=== PATIENT | female | born 1960 | race Two or more races ===

== ENCOUNTER → 2016-09-13 | Outpatient (CLI) | payer OTHER ==
--- NOTE | 2016-09-14 09:42 | KCIC ---
MR of the right hip Indication: Patient fell 4 years ago. Right hip pain for 3 months. Technique: Standard multiplanar sequences are obtained. Findings: Bones: No bone lesion, acute fracture or acute bone marrow edema. No femoral head osteonecrosis. Effusion: Small joint effusion. Cartilage: Severe primary osteoarthritis with cartilage loss and subchondral cysts. Labrum: Degenerative signal within the labrum without clear-cut attachment. Gluteus minimus and medius tendon: Intact Hamstring tendon: High-grade partial tear at the footplate attachment. This may be degenerative, as there is no adjacent fluid or hemorrhage to suggest an acute tear. Iliopsoas tendon: Intact Soft tissue:No significant acute findings. Diagnostically limited coronal inversion recovery survey sequence obtained with a large [id number] demonstrates osteoarthritis at the contralateral hip and milder tearing at the left hamstring tendon attachment.. Impression: 1. Severe primary osteoarthritis. 2. Small right hip joint effusion. 3. High-grade tear at the right hamstring tendon origin, likely chronic. Electronically signed by: Esdras Luna MD (09/14/2016 9:39 AM) [facility]
== END | disposition home or self-care (01) ==
LOC: KCIC MRI 16:08
PROVIDERS: ATTEND Family Medicine
DX: M16.11 Unilateral primary osteoarthritis, right hip (principal)
CPT/HCPCS: 73721

== ENCOUNTER 2021-01-17 18:52 | Inpatient (IN) | payer SELFPAY ==
[~2021-01-17] VITALS: Ht 152.4 cm; Wt 68.6 kg
[2021-01-17] MEDS ORDERED: KETOROLAC 15 MG/ML VIAL. IM ONE (21:00)
[2021-01-17 21:09] LABS: BASO # 0.1 x10^3/uL (0.0-0.2); BASO % 1 % (0-3); EOS % 0 % (0-3); HEMATOCRIT 36.7 % (36.0-47.0); HEMOGLOBIN 12.6 g/dL (12.0-15.5); LYMPH # 2.7 x10^3/uL (1.0-4.8); LYMPH % 35 % (24-48); MEAN CORPUSCULAR HEMOGLOBIN 31 pg (25-35); MEAN CORPUSCULAR HGB CONC 34 g/dL (31-37); MEAN CORPUSCULAR VOLUME 89 fL (79-100); MONO # 0.4 x10^3/uL (0.0-1.1); MONO % 6 % (0-9); NEUT # 4.7 x10^3/uL (1.8-7.7); NEUT % 59 % (31-73); PLATELET COUNT 232 x10^3/uL (140-400); RED BLOOD COUNT 4.11 x10^6/uL (3.50-5.40); RED CELL DISTRIBUTION WIDTH 17.1 % (11.5-14.5); WHITE BLOOD COUNT 7.9 x10^3/uL (4.0-11.0)
[2021-01-17 21:26] LABS: CALCIUM 8.6 mg/dL (8.5-10.1); CREATININE 2.2 mg/dL (0.6-1.0); GFR 22.8; POTASSIUM 3.3 mmol/L (3.5-5.1)
[2021-01-17 21:31] LABS: ALBUMIN 3.8 g/dL (3.4-5.0); TOTAL BILIRUBIN 0.4 mg/dL (0.2-1.0); TOTAL PROTEIN 7.6 g/dL (6.4-8.2)
[2021-01-17 21:45] LABS: BILIRUBIN,URINE NEGATIVE (NEG); CLARITY,URINE CLOUDY; COLOR,URINE YELLOW; NITRITE,URINE NEGATIVE (NEG); PROTEIN,URINE NEGATIVE (NEG-TRACE)
[2021-01-17 21:55] LABS: AMORPHOUS SEDIMENT,UR PRESENT /HPF; BACTERIA,URINE 0 /HPF (0-FEW); RBC,URINE 0 /HPF (0-2); WBC,URINE 0 /HPF (0-4)
[2021-01-17] MEDS ORDERED: IV NORMAL SALINE 1000ML BAG 1,000 ML IV ONE (22:00)
--- NOTE | 2021-01-17 22:17 | RAD ---
CT scan abdomen and pelvis without contrast 01/17/2021 CLINICAL HISTORY: Abdominal pain. TECHNIQUE: Unenhanced, contiguous, 5 mm axial sections were obtained through the abdomen and pelvis. One or more of the following individualized dose reduction techniques were utilized for this study: 1. Automated exposure control. 2. Adjustment of the mA and/or kV according to patient size. 3. Use of iterative reconstruction technique. FINDINGS: Images through the lung bases demonstrate minimal dependent subsegmental atelectasis bilate rally. The liver, spleen, pancreas, adrenal glands and kidneys are within normal limits. Atherosclerotic calcification of the abdominal aorta is seen. The abdominal aorta tapers normally. Serrano rgical changes are seen consistent with a gastric bypass type procedure. The gallbladder is distended . No free fluid or free air is seen within the abdomen. There is no evidence of bowel obstruction. Th e appendix is well-visualized and is within normal limits. Images through the pelvis demonstrate the urinary bladder to be contracted. No adnexal mass is seen. No free fluid is noted. The patient is post right KEANU. A fat-containing ventral hernia is seen projec ting to the left of midline within the lower anterior abdominal wall. This measures 7 cm transverse d iameter. Very mild S-shaped curvature of the thoracolumbar spine is seen. Degenerative changes are se en involving the lower thoracic and throughout the lumbar spine along with the left hip. The patient is post right KEANU. IMPRESSION: No acute abnormality is seen. Electronically signed by: Tony Chaudhry MD (01/17/2021 10:15 PM) [id number]
--- NOTE | 2021-01-17 22:32 | RAD ---
Exam: Chest one view INDICATION: Epigastric pain TECHNIQUE: Frontal view of the chest Comparisons: None FINDINGS: The cardiomediastinal silhouette and pulmonary vessels are within normal limits. The lung and pleural spaces are clear. IMPRESSION: No acute cardiopulmonary process. Electronically signed by: Tenisha Lama MD (01/17/2021 10:29 PM) JEANE
--- NOTE | 2021-01-17 23:32 | EKG ---
[facility] [address] [place] [address] Test Date: 2021-01-17 Test Time: 20:37:05 Pat Name: MANNY CAMPBELL Department: Room: Gender: F [employer] Instructor: : 1960 Requested By: ALEE GOODEN Order Number: [id number] Reading MD: Pieter Day MD Measurements Intervals [place] Rate: 87 P: 26 NE: 126 QRS: -23 QRSD: 78 T: -7 QT: 436 QTc: 525 Interpretive Statements SINUS RHYTHM BASELINE ARTIFACT NON-SPECIFIC ST/T CHANGES Electronically Signed On 01-22-2021 14:09:04 GRAPHIC DESIGN PROFESSOR by Pieter Day MD
[2021-01-17] MEDS ORDERED: FAMOTIDINE 20 MG/2 ML VIAL IVP ONE (23:45)
[2021-01-17] MEDS ORDERED: METOCLOPRAMIDE HCL 10 MG/2 ML VIAL. IVP ONE (23:45)
--- NOTE | 2021-01-18 01:16 | PHYS DOC ---
Past Medical History Additional Past Medical Histor: STOMACH CANCER, NEUROPATHY Past Surgical History: Hip Replacement, Other Additional Past Surgical Histo: HERNIA, CARPAL TUNNEL Smoking Status: Former Smoker Alcohol Use: None General Adult EDM: Chief Complaint: ABDOMINAL PAIN HPI: HPI: 60 yo F presents to the ED with her sister, (patient consents to his/her/their knowledge and involvement in pts' medical care), with complaints of upper abdominal pain, nausea, vomiting and diarrhea. Reports there has been some bloody emesis. Sister reports pt has been drinking daily for the past week. Review of Systems: Review of Systems: Constitutional: Denies fever or chills. [] Eyes: Denies change in visual acuity. [] HENT: Denies nasal congestion or sore throat. [] Respiratory: Denies cough or shortness of breath. [] Cardiovascular: Denies chest pain or edema. [] GI: Denies melena or hematochezia : Denies dysuria or hematuria Musculoskeletal: Denies back pain or joint pain. [] Integument: Denies rash or diaphoresis Neurologic: Denies headache, focal weakness or sensory changes. [] Endocrine: Denies polyuria or polydipsia. [] Lymphatic: Denies swollen glands. [] Psychiatric: Denies depression or anxiety. [] Heart Score: C/O Chest Pain: No Risk Factors: Risk Factors: DM, Current or recent (<one month) smoker, HTN, HLP, family history of CAD, obesity. Risk Scores: Score 0 - 3: 2.5% MACE over next 6 weeks - Discharge Home Score 4 - 6: 20.3% MACE over next 6 weeks - Admit for Clinical Observation Score 7 - 10: 72.7% MACE over next 6 weeks - Early Invasive Strategies Current Medications: Current Medications Medications (Trade) Dose Ordered Sig/Markus Start Time Stop Time Status Last Admin Dose Admin Famotidine (Pepcid Vial) 20 mg 1X ONCE 01/17/21 23:45 01/17/21 23:46 DC 01/17/21 23:41 20 MG Ketorolac Tromethamine (Toradol 15mg Vial) 15 mg 1X ONCE 01/17/21 21:00 01/17/21 21:01 Cancel Metoclopramide HCl (Reglan Vial) 10 mg 1X ONCE 01/17/21 23:45 01/17/21 23:46 DC 01/17/21 23:41 10 MG Sodium Chloride 1,000 ml @ 1,000 mls/hr 1X ONCE 01/17/21 22:00 01/17/21 22:59 DC 01/17/21 21:37 1,000 MLS/HR Allergies: Allergies: Allergies Coded Allergies Type Severity Reaction Last Updated Verified morphine Allergy Intermediate 01/17/21 Yes Physical Exam: PE: Constitutional: no acute distress, non-toxic appearance, is sleeping while placing an IV, on re-eval is ambulatory but grimacing in pain, cannot appreciate alcohol breath HENT: Normocephalic, atraumatic, Eyes: EOMI, conjunctiva normal, no discharge. Neck: Normal range of motion, supple, Cardiovascular: S1/2 present, regular rhythm Lungs & Thorax: Speaking in full sentences, bilateral equal chest rise, no tachypnea or increased work of breathing Abdomen: soft, epigastric tenderness, Sainz sign present Skin: Warm, dry, no erythema, no rash. [] Back: No tenderness, no CVA tenderness. [] Extremities: No tenderness, no cyanosis, no lower extremity edema Neurologic: Alert and oriented X 3, normal motor function, normal sensory function, no focal deficits noted. [] Psychologic: Affect normal, judgement normal, mood normal. [] Current Patient Data: Labs: Laboratory Tests Test 01/17/21 21:00 01/17/21 21:39 White Blood Count 7.9 x10^3/uL (4.0-11.0) Red Blood Count 4.11 x10^6/uL (3.50-5.40) Hemoglobin 12.6 g/dL (12.0-15.5) Hematocrit 36.7 % (36.0-47.0) Mean Corpuscular Volume 89 fL (79-100) Mean Corpuscular Hemoglobin 31 pg (25-35) Mean Corpuscular Hemoglobin Concent 34 g/dL (31-37) Red Cell Distribution Width 17.1 % (11.5-14.5) H Platelet Count 232 x10^3/uL (140-400) Neutrophils (%) (Auto) 59 % (31-73) Lymphocytes (%) (Auto) 35 % (24-48) Monocytes (%) (Auto) 6 % (0-9) Eosinophils (%) (Auto) 0 % (0-3) Basophils (%) (Auto) 1 % (0-3) Neutrophils # (Auto) 4.7 x10^3/uL (1.8-7.7) Lymphocytes # (Auto) 2.7 x10^3/uL (1.0-4.8) Monocytes # (Auto) 0.4 x10^3/uL (0.0-1.1) Eosinophils # (Auto) 0.0 x10^3/uL (0.0-0.7) Basophils # (Auto) 0.1 x10^3/uL (0.0-0.2) Sodium Level 140 mmol/L (136-145) Potassium Level 3.3 mmol/L (3.5-5.1) L Chloride Level 104 mmol/L (98-107) Carbon Dioxide Level 25 mmol/L (21-32) Anion Gap 11 (6-14) Blood Urea Nitrogen 6 mg/dL (7-20) L Creatinine 2.2 mg/dL (0.6-1.0) H Estimated GFR (Cockcroft-Gault) 22.8 BUN/Creatinine Ratio 3 (6-20) L Glucose Level 116 mg/dL (70-99) H Calcium Level 8.6 mg/dL (8.5-10.1) Magnesium Level 2.3 mg/dL (1.8-2.4) Total Bilirubin 0.4 mg/dL (0.2-1.0) Aspartate Amino Transferase (AST) 32 U/L (15-37) Alanine Aminotransferase (ALT) 26 U/L (14-59) Alkaline Phosphatase 58 U/L (46-116) Troponin I High Sensitivity 10 ng/L (4-50) Total Protein 7.6 g/dL (6.4-8.2) Albumin 3.8 g/dL (3.4-5.0) Albumin/Globulin Ratio 1.0 (1.0-1.7) Lipase 109 U/L (73-393) Ethyl Alcohol Level < 10 mg/dL (0-10) Urine Collection Type Void Urine Color Yellow Urine Clarity Cloudy Urine pH 7.0 (<5.0-8.0) Urine Specific [place] 1.015 (1.000-1.030) Urine Protein Negative mg/dL (NEG-TRACE) Urine Glucose (UA) Negative mg/dL (NEG) Urine Ketones (Stick) >=80 mg/dL (NEG) Urine Blood Negative (NEG) Urine Nitrite Negative (NEG) Urine Bilirubin Negative (NEG) Urine Urobilinogen Dipstick 1.0 mg/dL (0.2 mg/dL) Urine Leukocyte Esterase Negative (NEG) Urine RBC 0 /HPF (0-2) Urine WBC 0 /HPF (0-4) Urine Squamous Epithelial Cells Mod /LPF Urine Amorphous Sediment Present /HPF Urine Bacteria 0 /HPF (0-FEW) Urine Mucus Slight /LPF Laboratory Tests 01/17/21 21:00 Laboratory Tests 01/17/21 21:00 Vital Signs: Vital Signs Date Time Temp Pulse Resp B/P (MAP) Pulse Ox O2 Delivery O2 Flow Rate FiO2 01/17/21 19:30 97.4 100 24 142/73 (96) 99 Room Air 97.4 EKG: EKG: sinus rhythm 87 bpm, LAD, QTC 525, no T wave inversions, no ST elevation or ST depression Radiology/Procedures: Radiology/Procedures: IMAGING REPORT Signed PATIENT: MANNY CAMPBELLACCOUNT: [id number] : 1960 LOCATION: ER AGE: 60 SEX: F EXAM STATUS: REG ER ORD. PHYSICIAN: ALEE GOODEN DO REASON: abd pain PROCEDURE: CT ABDOMEN PELVIS WO CONTRAST CT scan abdomen and pelvis without contrast 01/17/2021 CLINICAL HISTORY: Abdominal pain. TECHNIQUE: Unenhanced, contiguous, 5 mm axial sections were obtained through the abdomen and pelvis. One or more of the following individualized dose reduction techniques were utilized for this study: 1. Automated exposure control. 2. Adjustment of the mA and/or kV according to patient size. 3. Use of iterative reconstruction technique. FINDINGS: Images through the lung bases demonstrate minimal dependent subsegmental atelectasis bilaterally. The liver, spleen, pancreas, adrenal glands and kidneys are within normal limits. Atherosclerotic calcification of the abdominal aorta is seen. The abdominal aorta tapers normally. Surgical changes are seen consistent with a gastric bypass type procedure. The gallbladder is distended. No free fluid or free air is seen within the abdomen. There is no evidence of bowel obstruction. The appendix is well-visualized and is within normal limits. Images through the pelvis demonstrate the urinary bladder to be contracted. No adnexal mass is seen. No free fluid is noted. The patient is post right KEANU. A fat-containing ventral hernia is seen projecting to the left of midline within the lower anterior abdominal wall. This measures 7 cm transverse diameter. Very mild S-shaped curvature of the thoracolumbar spine is seen. Degenerative changes are seen involving the lower thoracic and throughout the lumbar spine along with the left hip. The patient is post right KEANU. IMPRESSION: No acute abnormality is seen. Electronically signed by: Tony Chaudhry MD (01/17/2021 10:15 PM) [id number] DICTATED and SIGNED BY: TONY CHAUDHRY MD DATE: 01/17/[id number] 0 IMAGING REPORT Signed PATIENT: MANNY CAMPBELLACCOUNT: [id number] : 1960 LOCATION: ER AGE: 60 SEX: F EXAM STATUS: REG ER ORD. PHYSICIAN: ALEE GOODEN DO REASON: epigastric pain PROCEDURE: CHEST AP ONLY Exam: Chest one view INDICATION: Epigastric pain TECHNIQUE: Frontal view of the chest Comparisons: None FINDINGS: The cardiomediastinal silhouette and pulmonary vessels are within normal limits. The lung and pleural spaces are clear. IMPRESSION: No acute cardiopulmonary process. Electronically signed by: Tenisha Mack MD (01/17/2021 10:29 PM) [facility] DICTATED and SIGNED BY: TENISHA MACK MD DATE: 01/17/[id number] 0 IMAGING REPORT Signed PATIENT: MANNY CAMPBELLACCOUNT: [id number] : 1960 LOCATION: [address] [place] [address] AGE: 60 SEX: F EXAM STATUS: ADM IN ORD. PHYSICIAN: ALEE GOODEN DO REASON: ruq pain PROCEDURE: ABDOMEN LTD Right upper quadrant abdominal ultrasound History: Reason: ruq pain Comparison: CT abdomen and pelvis without contrast, prior day. Technique: Transabdominal ultrasound images are obtained. Findings: The liver is normal in echotexture. The liver measures 12.1 cm. Ultrasound is not sensitive for detecting solid liver lesions. Portal flow is hepatopetal. The common bile duct diameter measures 3 mm. The gallbladder wall is normal. The gallbladder is distended. Per report, sonographic Sainz sign is negative. There is no cholelithiasis or pericholecystic fluid. The pancreas and IVC are mostly obscured due to overlying bowel gas. The right kidney is normal in echotexture and measures 10.2 cm. Corticomedullary differentiation is preserved. There is no hydronephrosis. IMPRESSION: The gallbladder is distended but otherwise normal. Electronically signed by: Gopi Mccain MD (01/18/2021 2:10 AM) [facility] DICTATED and SIGNED BY: GOPI MCCAIN MD DATE: 01/18/21 [id number] 0 Course & Med Decision Making: Course & Med Decision Making Pertinent Labs and Imaging studies reviewed. (See chart for details) Concern for abdominal pain with no witnessed vomiting or diarrhea in the emergen cy department. Labs concerning for renal insufficiency, no prior for comparison. On reevaluation patient with persistent pain. Gallbladder is dilated but no evidence of cholecystectomy. Patient does have a positive Sainz sign. Will admit for further medical management. Patient stable at time of admission agrees with this plan. I have spoken with the patient and/or caregivers. I have explained the patient's condition, diagnosis and treatment plan based on the information available to me at this time. I have answered the patient's and/or caregivers questions and answered any concerns. The patient and/or caregivers have as good an understanding of the patient's diagnosis, condition and treatment plan as can be expected at this point. The patient has been stabilized within the capability of the emergency department. The patient will be transported for further care and management or will be moved to an observation or inpatient service. I have communicated with the staff or medical practitioner taking over this patient's care. Dragon Disclaimer: Dragfabrice Disclaimer: This electronic medical record was generated, in whole or in part, using a voice recognition dictation system. Departure Departure Impression: Primary Impression: Abdominal pain Additional Impression: Renal insufficiency Disposition: ADMITTED INPATIENT Admitting Physician: JOSHUA (Dr. Minaya) Condition: STABLE Referrals: NO PCP (PCP) ALEE GOODEN DO Jan 18, 2021 01:15
--- NOTE | 2021-01-18 02:13 | RAD ---
Right upper quadrant abdominal ultrasound History: Reason: ruq pain Comparison: CT abdomen and pelvis without contrast, prior day. Technique: Transabdominal ultrasound images are obtained. Findings: The liver is normal in echotexture. The liver measures 12.1 cm. Ultrasound is not sensitive for detec ting solid liver lesions. Portal flow is hepatopetal. The common bile duct diameter measures 3 mm. The gallbladder wall is normal. The gallbladder is distended. Per report, sonographic Sainz sign is negative. There is no cholelithiasis or pericholecystic fluid. The pancreas and IVC are mostly obscured due to overlying bowel gas. The right kidney is normal in echotexture and measures 10.2 cm. Corticomedullary differentiation is preserved. There is no hydronephrosis. IMPRESSION: The gallbladder is distended but otherwise normal. Electronically signed by: Gopi Mccain MD (01/18/2021 2:10 AM) [facility]
[2021-01-18 02:31] VITALS: BP 141/66
--- NOTE | 2021-01-18 03:35 | NUR ---
Patient arrived to floor 0215, this nurse sitting with 1:1 patient in another room and informed of arrival. Patient asleep, could be aroused to name. Unable to answer questions as she is [place] speaking only. This nurse asked charge nurse for labor conciliator phone, told where to find phone if available. Charge nurse informed this nurse that no phone was in drawer, charge nurse said to use my own personal cell phone to translate. This nurses' phone unable to download application for translating. Again tried to talk to patient who nodded head to a few questions. Admission paperwork done with information available on chart. Head to toe assessment completed without conversation.
[2021-01-18] MEDS ORDERED: ONDANSETRON ODT 4 MG TAB.RAPDIS. PO PRN (06:00)
[2021-01-18] MEDS ORDERED: cloNIDine HCL 0.1 MG TABLET PO PRN (06:00)
[2021-01-18 07:00] VITALS: BP 127/81
[2021-01-18] MEDS: IV NORMAL SALINE 1000ML BAG 1,000 ML IV SCH ×2 (07:00→14:00)
--- NOTE | 2021-01-18 07:20 | PDOC1 ---
History and Physical Date of Admission Date of Admission DATE: 01/18/21 TIME: 07:20 Identification/Chief Complaint Chief Complaint Vomiting, abdominal pain Source Source: Caregiver, Chart review, Patient History of Present Illness History of Present Illness Ms Tan is a 60 yo F presents to the ED with her sister c/o epigastric abdominal pain, nausea, vomiting and diarrhea. Reports there has been some bloody emesis. Sister reports pt has been drinking daily for the past week. Her sister notes multiple episodes of vomiting more than 10 times with a few episodes of some blood. Patient notes pain is sharp and 10 at worst worsened with alcohol and food does not radiate. Associated above nausea and vomiting. Per ED notes sister and noted patient has been drinking heavily for a week Smirnoff wine coolers and beers multiple per day and her sister notes she will drink incident either if there is none alcohol available No recent travel or sick contacts COVID 19 vaccinations completed june 2020. Has primary care through the [facility] Labs with WBC 7.9, Hb 12.6, platelets 232, NA 140, K3.3, BUN 6, CR 2.2, glucose 116, LFTs within normal limits, high-sensitivity troponin X, urinalysis positive ketones negative leuk esterase negative nitrites, ethanol level undetectable Chest radiograph CT abdomen pelvis with no acute abnormalities, right upper quadrant ultrasound with gallbladder no signs of cholecystitis. EKG sinus rhythm rate 87 bpm leftward axis otherwise normal intervals, QTC prolonged at [address] segment elevations no T WI. No previous EKG for comparison Admitted for further care Past Surgical History Past Surgical History: Hernia Repair, Total hip replacement Family History Family History: Diabetes, High Cholestrol, Hypertension Social History Smoke: Quit ALCOHOL: social Drugs: None Current Problem List Problem List Problems Medical Problems: (1) Abdominal pain Status: Acute (2) Renal insufficiency Status: Acute Current Medications Current Medications Current Medications Ketorolac Tromethamine (Toradol 15mg Vial) 15 mg 1X ONCE IM ; Start 01/17/21 at 21:00; Stop 01/17/21 at 21:01; Status Cancel Sodium Chloride 1,000 ml @ 1,000 mls/hr 1X ONCE IV Last administered on 01/17/21at 21:37; Start 01/17/21 at 22:00; Stop 01/17/21 at 22:59; Status DC Famotidine (Pepcid Vial) 20 mg 1X ONCE IVP Last administered on 01/17/21at 23:41; Start 01/17/21 at 23:45; Stop 01/17/21 at 23:46; Status DC Metoclopramide HCl (Reglan Vial) 10 mg 1X ONCE IVP Last administered on 01/17/21at 23:41; Start 01/17/21 at 23:45; Stop 01/17/21 at 23:46; Status DC Sodium Chloride 1,000 ml @ 125 mls/hr Q8H IV Last administered on 01/18/21at 07:00; Start 01/18/21 at 06:00; Stop 01/18/21 at 21:59 Acetaminophen (Tylenol) 650 mg PRN Q6HRS PRN PO MILD PAIN / TEMP > 100.3'F; Start 01/18/21 at 06:00 Olanzapine (ZyPREXA ZYDIS) 5 mg PRN BID PRN PO ANXIETY / AGITATION; Start 01/18/21 at 06:00 Ondansetron HCl (Zofran) 4 mg PRN Q4HRS PRN IVP NAUSEA/VOMITING 1ST CHOICE; Start 01/18/21 at 06:00 Ondansetron HCl (Zofran Odt) 4 mg PRN Q4HRS PRN PO NAUSEA; Start 01/18/21 at 06:00 Multivitamins (Thera M Plus) 1 tab DAILY PO ; Start 01/18/21 at 09:00 Folic Acid (Folic Acid) 1 mg DAILY PO ; Start 01/18/21 at 09:00 Thiamine Mononitrate (Vitamin B-1) 100 mg DAILY PO ; Start 01/18/21 at 09:00 Lorazepam (Ativan) 1 mg PRN Q1HR PRN PO For CIWA 8-14; Start 01/18/21 at 06:00 Lorazepam (Ativan) 2 mg PRN Q1HR PRN PO For CIWA 15 or greater; Start 01/18/21 at 06:00 Lorazepam (Ativan Inj) 1 mg PRN Q1HR PRN IV For CIWA 8-14; Start 01/18/21 at 06:00 Lorazepam (Ativan Inj) 2 mg PRN Q1HR PRN IV For CIWA 15 or greater; Start 01/18/21 at 06:00 Clonidine HCl (Catapres) 0.1 mg PRN Q1HR PRN PO SBP > 180 or DBP > 100, MRX3; Start 01/18/21 at 06:00 Allergies Allergies: Coded Allergies: morphine (Verified Allergy, Intermediate, 01/17/21) ROS General: YES: Fatigue, Malaise; No: Chills, Night Sweats, Appetite, Other PSYCHOLOGICAL ROS: No: Anxiety, Behavioral Disorder, Concentration difficultie, Decreased libido, Depression, Disorientation, Hallucinations, Hostility, Irritablity, Memory difficulties, Mood Swings, Obsessive thoughts, Physical abuse, Sexual abuse, Sleep disturbances, Suicidal ideation, Other Eyes: No Blurry vision, No Decreased vision, No Double vision, No Dry eyes, No Excessive tearing, No Eye Pain, No Itchy Eyes, No Loss of vision, No Photophobia, No Scotomata, No Uses contacts, No Uses glasses, No Other HEENT: No: Heacaches, Visual Changes, Hearing change, Nasal congestion, Nasal discharge, Oral lesions, Sinus pain, Sore Throat, Epistaxis, Sneezing, Snoring, Tinnitus, Vertigo, Vocal changes, Other ALLERGY AND IMMUNOLOGY: No: Hives, Insect Bite Sensitivity, Itchy/Watery Eyes, Nasal Congestion, Post Nasal Drip, Seasonal Allergies, Other Hematological and Lymphatic: No: Bleeding Problems, Blood Clots, Blood Transfusions, Brusing, Night Sweats, Pallor, Swollen Lymph Nodes, Other ENDOCRINE: No: Breast Changes, Galactorrhea, Hair Pattern Changes, Hot Flashes, Malaise/lethargy, Mood Swings, Palpitations, Polydipsia/polyuria, Skin Changes, Temperature Intolerance, Unexpected Weight Changes, Other Breast: No New/Changing Breast Lumps, No Nipple changes, No Nipple discharge, No Other Respiratory: No: Cough, Hemoptysis, Orthopnea, Pleuritic Pain, Shortness of breath, SOB with excertion, Sputum Changes, Stridor, Tachypnea, Wheezing, Other Cardiovascular: No Chest Pain, No Palpitations, No Orthopnea, No Paroxysmal Noc. Dyspnea, No Edema, No Lt Headedness, No Other Gastrointestinal: Yes Nausea, Yes Vomiting, Yes Abdominal Pain Genitourinary: No Dysuria, No Frequency, No Incontinence, No Hematuria, No Retention, No Discharge, No Urgency, No Pain, No Flank Pain, No Other, No , No , No , No , No , No , No Musculoskeletal: No Gait Disturbance, No Joint Pain, No Joint Stiffness, No Deisy nt Swelling, No Muscle Pain, No Muscular Weakness, No Pain In:, No Swelling In:, No Other Neurological: No Behavorial Changes, No Bowel/Bladder ControlChng, No Confusion, No Dizziness, No Gait Disturbance, No Headaches, No Impaired Co ord/balance, No Memory Loss, No Numbness/Tingling, No Seizures, No Speech Problems, No Tremors, No Visual Changes, No Weakness, No Other Skin: No Dry Skin, No Eczema, No Hair Changes, No Lumps, No Mole Changes, No Mottling, No Nail Changes, No Pruritus, No Rash, No Skin Lesion Changes, No Other, No Acne Physical Exam General: Alert, Oriented X3, Cooperative, moderate distress HEENT: Atraumatic, PERRLA, EOMI, Mucous membr. moist/pink Lungs: Clear to auscultation, Normal air movement Heart: S1S2, RRR, no thrills, no rubs, no gallops, no murmurs Abdomen: Normal bowel sounds, Soft, No hepatosplenomegaly, No masses, Other (epigastric tenderness, positive sainz sign) Extremities: No clubbing, No cyanosis, No edema, Normal pulses, No tenderness/swelling Skin: No rashes, No breakdown, No significant lesion Neuro: Normal gait, Normal speech, Strength at 5/5 X4 ext, Normal tone, Sensation intact, Cranial nerves 3-12 NL, Reflexes 2+ Psych/Mental Status: Mental status NL, Mood NL, Other (Drowsy, falls asleep easily) Vitals Vitals Vital Signs Date Time Temp Pulse Resp B/P (MAP) Pulse Ox O2 Delivery O2 Flow Rate FiO2 01/18/21 02:31 98.2 69 18 141/66 (91) 97 Room Air 98.2 Labs Labs Laboratory Tests Test 01/17/21 21:00 01/17/21 21:39 White Blood Count 7.9 x10^3/uL (4.0-11.0) Red Blood Count 4.11 x10^6/uL (3.50-5.40) Hemoglobin 12.6 g/dL (12.0-15.5) Hematocrit 36.7 % (36.0-47.0) Mean Corpuscular Volume 89 fL (79-100) Mean Corpuscular Hemoglobin 31 pg (25-35) Mean Corpuscular Hemoglobin Concent 34 g/dL (31-37) Red Cell Distribution Width 17.1 % (11.5-14.5) Platelet Count 232 x10^3/uL (140-400) Neutrophils (%) (Auto) 59 % (31-73) Lymphocytes (%) (Auto) 35 % (24-48) Monocytes (%) (Auto) 6 % (0-9) Eosinophils (%) (Auto) 0 % (0-3) Basophils (%) (Auto) 1 % (0-3) Neutrophils # (Auto) 4.7 x10^3/uL (1.8-7.7) Lymphocytes # (Auto) 2.7 x10^3/uL (1.0-4.8) Monocytes # (Auto) 0.4 x10^3/uL (0.0-1.1) Eosinophils # (Auto) 0.0 x10^3/uL (0.0-0.7) Basophils # (Auto) 0.1 x10^3/uL (0.0-0.2) Sodium Level 140 mmol/L (136-145) Potassium Level 3.3 mmol/L (3.5-5.1) Chloride Level 104 mmol/L (98-107) Carbon Dioxide Level 25 mmol/L (21-32) Anion Gap 11 (6-14) Blood Urea Nitrogen 6 mg/dL (7-20) Creatinine 2.2 mg/dL (0.6-1.0) Estimated GFR (Cockcroft-Gault) 22.8 BUN/Creatinine Ratio 3 (6-20) Glucose Level 116 mg/dL (70-99) Calcium Level 8.6 mg/dL (8.5-10.1) Magnesium Level 2.3 mg/dL (1.8-2.4) Total Bilirubin 0.4 mg/dL (0.2-1.0) Aspartate Amino Transf (AST/SGOT) 32 U/L (15-37) Alanine Aminotransferase (ALT/SGPT) 26 U/L (14-59) Alkaline Phosphatase 58 U/L (46-116) Troponin I High Sensitivity 10 ng/L (4-50) Total Protein 7.6 g/dL (6.4-8.2) Albumin 3.8 g/dL (3.4-5.0) Albumin/Globulin Ratio 1.0 (1.0-1.7) Lipase 109 U/L (73-393) Ethyl Alcohol Level < 10 mg/dL (0-10) Urine Collection Type Void Urine Color Yellow Urine Clarity Cloudy Urine pH 7.0 (<5.0-8.0) Urine Specific [place] 1.015 (1.000-1.030) Urine Protein Negative mg/dL (NEG-TRACE) Urine Glucose (UA) Negative mg/dL (NEG) Urine Ketones (Stick) >=80 mg/dL (NEG) Urine Blood Negative (NEG) Urine Nitrite Negative (NEG) Urine Bilirubin Negative (NEG) Urine Urobilinogen Dipstick 1.0 mg/dL (0.2 mg/dL) Urine Leukocyte Esterase Negative (NEG) Urine RBC 0 /HPF (0-2) Urine WBC 0 /HPF (0-4) Urine Squamous Epithelial Cells Mod /LPF Urine Amorphous Sediment Present /HPF Urine Bacteria 0 /HPF (0-FEW) Urine Mucus Slight /LPF Laboratory Tests Test 01/17/21 21:00 01/17/21 21:39 White Blood Count 7.9 x10^3/uL (4.0-11.0) Red Blood Count 4.11 x10^6/uL (3.50-5.40) Hemoglobin 12.6 g/dL (12.0-15.5) Hematocrit 36.7 % (36.0-47.0) Mean Corpuscular Volume 89 fL (79-100) Mean Corpuscular Hemoglobin 31 pg (25-35) Mean Corpuscular Hemoglobin Concent 34 g/dL (31-37) Red Cell Distribution Width 17.1 % (11.5-14.5) Platelet Count 232 x10^3/uL (140-400) Neutrophils (%) (Auto) 59 % (31-73) Lymphocytes (%) (Auto) 35 % (24-48) Monocytes (%) (Auto) 6 % (0-9) Eosinophils (%) (Auto) 0 % (0-3) Basophils (%) (Auto) 1 % (0-3) Neutrophils # (Auto) 4.7 x10^3/uL (1.8-7.7) Lymphocytes # (Auto) 2.7 x10^3/uL (1.0-4.8) Monocytes # (Auto) 0.4 x10^3/uL (0.0-1.1) Eosinophils # (Auto) 0.0 x10^3/uL (0.0-0.7) Basophils # (Auto) 0.1 x10^3/uL (0.0-0.2) Sodium Level 140 mmol/L (136-145) Potassium Level 3.3 mmol/L (3.5-5.1) Chloride Level 104 mmol/L (98-107) Carbon Dioxide Level 25 mmol/L (21-32) Anion Gap 11 (6-14) Blood Urea Nitrogen 6 mg/dL (7-20) Creatinine 2.2 mg/dL (0.6-1.0) Estimated GFR (Cockcroft-Gault) 22.8 BUN/Creatinine Ratio 3 (6-20) Glucose Level 116 mg/dL (70-99) Calcium Level 8.6 mg/dL (8.5-10.1) Magnesium Level 2.3 mg/dL (1.8-2.4) Total Bilirubin 0.4 mg/dL (0.2-1.0) Aspartate Amino Transf (AST/SGOT) 32 U/L (15-37) Alanine Aminotransferase (ALT/SGPT) 26 U/L (14-59) Alkaline Phosphatase 58 U/L (46-116) Troponin I High Sensitivity 10 ng/L (4-50) Total Protein 7.6 g/dL (6.4-8.2) Albumin 3.8 g/dL (3.4-5.0) Albumin/Globulin Ratio 1.0 (1.0-1.7) Lipase 109 U/L (73-393) Ethyl Alcohol Level < 10 mg/dL (0-10) Urine Collection Type Void Urine Color Yellow Urine Clarity Cloudy Urine pH 7.0 (<5.0-8.0) Urine Specific [place] 1.015 (1.000-1.030) Urine Protein Negative mg/dL (NEG-TRACE) Urine Glucose (UA) Negative mg/dL (NEG) Urine Ketones (Stick) >=80 mg/dL (NEG) Urine Blood Negative (NEG) Urine Nitrite Negative (NEG) Urine Bilirubin Negative (NEG) Urine Urobilinogen Dipstick 1.0 mg/dL (0.2 mg/dL) Urine Leukocyte Esterase Negative (NEG) Urine RBC 0 /HPF (0-2) Urine WBC 0 /HPF (0-4) Urine Squamous Epithelial Cells Mod /LPF Urine Amorphous Sediment Present /HPF Urine Bacteria 0 /HPF (0-FEW) Urine Mucus Slight /LPF Images Images CT scan abdomen and pelvis without contrast 01/17/2021 FINDINGS: Images through the lung bases demonstrate minimal dependent subsegmental atelectasis bilaterally. The liver, spleen, pancreas, adrenal glands and kidneys are within normal limits. Atherosclerotic calcification of the abdominal aorta is seen. The abdominal aorta tapers normally. Surgical changes are seen consistent with a gastric bypass type procedure. The gallbladder is distended. No free fluid or free air is seen within the abdomen. There is no evidence of bowel obstruction. The appendix is well-visualized and is within normal limits. Images through the pelvis demonstrate the urinary bladder to be contracted. No adnexal mass is seen. No free fluid is noted. The patient is post right KEANU. A fat-containing ventral hernia is seen projecting to the left of midline within the lower anterior abdominal wall. This measures 7 cm transverse diameter. Very mild S-shaped curvature of the thoracolumbar spine is seen. Degenerative changes are seen involving the lower thoracic and throughout the lumbar spine along with the left hip. The patient is post right KEANU. IMPRESSION: No acute abnormality is seen. CHEST AP ONLY radiograph: FINDINGS: The cardiomediastinal silhouette and pulmonary vessels are within normal limits. The lung and pleural spaces are clear. IMPRESSION: No acute cardiopulmonary process. Right upper quadrant abdominal ultrasound: Findings: The liver is normal in echotexture. The liver measures 12.1 cm. Ultrasound is not sensitive for detecting solid liver lesions. Portal flow is hepatopetal. The common bile duct diameter measures 3 mm. The gallbladder wall is normal. The gallbladder is distended. Per report, sonographic Asinz sign is negative. There is no cholelithiasis or perichole cystic fluid. The pancreas and IVC are mostly obscured due to overlying bowel gas. The right kidney is normal in echotexture and measures 10.2 cm. Corticomedullary differentiation is preserved. There is no hydronephrosis. IMPRESSION: The gallbladder is distended but otherwise normal. VTE Prophylaxis Ordered VTE Prophylaxis Devices: No VTE Pharmacological Prophylaxi: Yes Assessment/Plan Assessment/Plan A/P: Intractable Abdominal pain -no clear intra-abdominal pathology possibly severe GERD versus PUD. Lower suspicion for cholecystitis given her ultrasound findings. If pain persists will consult general surgery have HIDA scan performed otherwise IV PPI remain n.p.o. until pain is under better control no further vomiting. Ruled out cardiac etiology with EKG and troponin HS Hematemesis - will trend Hb. No further vomiting in ED. concern for alcoholic gastritis as etiology. IV PPI. IV anti-emetics MARCELA - vasomotor nephropathy from dehydration from Alcohol binge. Cr 0.8 at [facility] 2 months ago. Will hydrate and trend. Overweight - counseled on lifestyle modification Heavy ETOH use - will place on CIWA scale, monitor Hypokalemia - replace IV while NPO FEN - NPO PPX - SCDs, IV ppi FULL CODE Dispo - inpatient for above Justifications for Admission Other Justification CECELIA ARAUJO MD Jan 18, 2021 07:20
[2021-01-18] MEDS: THIAMINE 100 MG TABLET. PO SCH (09:00)
[2021-01-18] MEDS: FOLIC ACID 1 MG TABLET. PO SCH (09:00)
[2021-01-18] MEDS: MULTIVITAMIN with MINERAL TABLET. PO SCH (09:00)
[2021-01-18] MEDS ORDERED: PANTOPRAZOLE IV PUSH 40 MG VIAL. IVP ONE (09:30)
[2021-01-18] MEDS: ONDANSETRON PF 4 MG/2 ML VIAL. IVP PRN (09:31)
[2021-01-18] MEDS: fentaNYL PF VIAL 100 MCG/2 ML VIAL IVP PRN ×4 (09:48→23:51)
[2021-01-18] MEDS ORDERED: MULTIVIT INFUSN,ADULT 4,VIT K 10 ML, THIAMINE INJ 100 MG, FOLIC ACID INJ 1 MG in IV NOR... IV ONE (10:00)
--- NOTE | 2021-01-18 10:14 | NUR ---
JENNY following. Discussed with RN, pt from home with , room air. PAT consulted for daily drinking. Med Assist following for self pay status. JENNY will continue to follow. Addendum: 01/18/21 at 1551 by WILIAN ALVARADO Logan (KELLY) met with pt, pt was hardly able to stay awake but did state she would call [employer]. Pt reports drinking a pint of whiskey a day. Resources given for [facility], [facility], [facility] and AA.
[2021-01-18 10:50] LABS: HEMATOCRIT 37.6 % (36.0-47.0); HEMOGLOBIN 12.8 g/dL (12.0-15.5); RED BLOOD COUNT 4.16 x10^6/uL (3.50-5.40); RED CELL DISTRIBUTION WIDTH 17.3 % (11.5-14.5); WHITE BLOOD COUNT 6.6 x10^3/uL (4.0-11.0)
[2021-01-18 10:57] LABS: CALCIUM 8.2 mg/dL (8.5-10.1); CREATININE 1.8 mg/dL (0.6-1.0); GFR 28.8; POTASSIUM 3.2 mmol/L (3.5-5.1)
[2021-01-18 11:00] VITALS: BP 140/81
[2021-01-18] MEDS ORDERED: POTASSIUM CHLORIDE 10MEQ 100 ML IV ONE (11:15)
[2021-01-18 14:35] VITALS: BP 130/74
[2021-01-18 19:42] VITALS: BP 143/71
[2021-01-18 22:57] VITALS: BP 123/67
[2021-01-19] MEDS: fentaNYL PF VIAL 100 MCG/2 ML VIAL IVP PRN ×2 (03:01→20:55)
[2021-01-19 03:09] VITALS: BP 133/68
[2021-01-19 05:16] LABS: ALBUMIN 3.2 g/dL (3.4-5.0); ALBUMIN/GLOBULIN RATIO 0.9 (1.0-1.7); CREATININE 1.4 mg/dL (0.6-1.0); GFR 38.5; POTASSIUM 3.2 mmol/L (3.5-5.1); TOTAL BILIRUBIN 0.5 mg/dL (0.2-1.0); TOTAL PROTEIN 6.8 g/dL (6.4-8.2)
[2021-01-19 07:00] VITALS: BP 131/74
[2021-01-19] MEDS: THIAMINE 100 MG TABLET. PO SCH (09:00)
[2021-01-19] MEDS: FOLIC ACID 1 MG TABLET. PO SCH (09:00)
[2021-01-19] MEDS: MULTIVITAMIN with MINERAL TABLET. PO SCH (09:00)
--- NOTE | 2021-01-19 09:33 | PDOC2 ---
GI CONSULT Date of Service: DATE: 01/19/21 TIME: 09:33 Reason For Consult: abdominal pain, n/v/d HPI: HPI: 60 y/o [place]uran-speaking female accompanied by her , admitted through ER on 01/17/21. No pulp screen operator phone available in room so translation help from staff. Ill x 1 week w/ upper abdominal pain, vomiting, and diarrhea. says precipitated by drinking - drinks alcohol heavily - recently drinking acetone because no drinks available. Epigastric pain is constant. Last vomited "saliva" this morning. Staff unaware of continued emesis, also no witnessed bleeding (though hematemesis mentioned in other notes). Pt asks for pain medication but staff will find her sleeping. H/o "stomach cancer" treated w/ surgery by Dr. Pacheco to remove "3/4 of her stomach" about 6 years ago. Reports normal EGD ~2 years ago "on 435." No previous colonoscopy. No GB, liver, or pancreas history. Daily Aleve. RF and JORDEN negative per past labs. requests SCDs. PMH: PMH: stomach cancer/resection, neuropathy hip replacement, hernia repairs, carpal tunnel release FH: Family History: No pertinent hx Social History: Smoke: Quit ALCOHOL: heavy ROS: GEN: Denies fevers, chills, sweats HEENT: Denies blurred vision, sore throat CV: Denies chest pain RESP: Denies shortness of air, cough GI: Per HPI : Denies hematuria, dysuria ENDO: Denies weight changes NEURO: Denies confusion, dizziness MSK: Denies weakness, joint pain/swelling SKIN: Denies jaundice, pruritus Vitals: Vitals: Vital Signs Date Time Temp Pulse Resp B/P (MAP) Pulse Ox O2 Delivery O2 Flow Rate FiO2 01/19/21 07:00 98.0 103 18 131/74 (93) 94 Room Air 98.0 Labs: Labs: Laboratory Tests Test 01/18/21 10:30 01/19/21 03:20 White Blood Count 6.6 x10^3/uL (4.0-11.0) Red Blood Count 4.16 x10^6/uL (3.50-5.40) Hemoglobin 12.8 g/dL (12.0-15.5) Hematocrit 37.6 % (36.0-47.0) Mean Corpuscular Volume 91 fL (79-100) Mean Corpuscular Hemoglobin 31 pg (25-35) Mean Corpuscular Hemoglobin Concent 34 g/dL (31-37) Red Cell Distribution Width 17.3 % (11.5-14.5) Platelet Count 200 x10^3/uL (140-400) Sodium Level 140 mmol/L (136-145) 141 mmol/L (136-145) Potassium Level 3.2 mmol/L (3.5-5.1) 3.2 mmol/L (3.5-5.1) Chloride Level 105 mmol/L (98-107) 105 mmol/L (98-107) Carbon Dioxide Level 24 mmol/L (21-32) 23 mmol/L (21-32) Anion Gap 11 (6-14) 13 (6-14) Blood Urea Nitrogen 8 mg/dL (7-20) 7 mg/dL (7-20) Creatinine 1.8 mg/dL (0.6-1.0) 1.4 mg/dL (0.6-1.0) Estimated GFR (Cockcroft-Gault) 28.8 38.5 Glucose Level 97 mg/dL (70-99) 70 mg/dL (70-99) Calcium Level 8.2 mg/dL (8.5-10.1) 8.0 mg/dL (8.5-10.1) Troponin I High Sensitivity 8 ng/L (4-50) BUN/Creatinine Ratio 5 (6-20) Total Bilirubin 0.5 mg/dL (0.2-1.0) Aspartate Amino Transf (AST/SGOT) 25 U/L (15-37) Alanine Aminotransferase (ALT/SGPT) 22 U/L (14-59) Alkaline Phosphatase 49 U/L (46-116) Total Protein 6.8 g/dL (6.4-8.2) Albumin 3.2 g/dL (3.4-5.0) Albumin/Globulin Ratio 0.9 (1.0-1.7) Allergies: Coded Allergies: morphine (Verified Allergy, Intermediate, 01/17/21) Medications: Current Medications Medications (Trade) Dose Ordered Sig/Markus Route PRN Reason Start Time Stop Time Status Last Admin Dose Admin Multivitamins 10 ml/Thiamine HCl 100 mg/Folic Acid 1 mg/Sodium Chloride 1,011.2 ml @ 1,000.088 mls/hr 1X ONCE IV 01/18/21 10:00 01/18/21 11:00 DC 01/18/21 10:18 Potassium Chloride/Water 100 ml @ 100 mls/hr 1X ONCE IV 01/18/21 11:15 01/18/21 12:14 DC 01/18/21 12:06 Imaging: Imaging: CXR 01/17 IMPRESSION: No acute cardiopulmonary process. CT A/P w/o contrast 01/17 FINDINGS: Images through the lung bases demonstrate minimal dependent subsegmental atelectasis bilaterally. The liver, spleen, pancreas, adrenal glands and kidneys are within normal limits. Atherosclerotic calcification of the abdominal aorta is seen. The abdominal a adam tapers normally. Surgical changes are seen consistent with a gastric bypass type procedure. The gallbladder is distended. No free fluid or free air is seen within the abdomen. There is no evidence of bowel obstruction. The appendix is well-visualized and is within normal limits. Images through the pelvis demonstrate the urinary bladder to be contracted. No adnexal mass is seen. No free fluid is noted. The patient is post right KEANU. A fat-containing ventral hernia is seen projecting to the left of midline within the lower anterior abdominal wall. This measures 7 cm transverse diameter. Very mild S-shaped curvature of the thoracolumbar spine is seen. Degenerative changes are seen involving the lower thoracic and throughout the lumbar spine along with the left hip. The patient is post right KEANU. IMPRESSION: No acute abnormality is seen. Abd US 01/18 Findings: The liver is normal in echotexture. The liver measures 12.1 cm. Ultrasound is not sensitive for detecting solid liver lesions. Portal flow is hepatopetal. The common bile duct diameter measures 3 mm. The gallbladder wall is normal. The gallbladder is distended. Per report, sonographic Sainz sign is negative. There is no cholelithiasis or pericholecystic fluid. The pancreas and IVC are mostly obscured due to overlying bowel gas. The right kidney is normal in echotexture and measures 10.2 cm. Corticomedullary differentiation is preserved. There is no hydronephrosis. IMPRESSION: The gallbladder is distended but otherwise normal. PE: GEN: uncomfortable HEENT: Atraumatic, PERRL LUNGS: CTAB anteriorly HEART: mildly tachycardic ABD: quiet BS, soft, tenderness to light palpation epigastrium toward LUQ, ventral hernia EXTREMITY: No edema SKIN: vertical surg scars mid abdomen NEURO/PSYCH: A & O 3, speaks Honduran A/P: A/P: Epigastric pain, vomiting, diarrhea Hypokalemia, MARCELA H/o stomach cancer/surgery - records unavailable for review CRC screen - none NSAID use Alcohol abuse - normal liver on imaging, normal LFTs, normal plt - recently drinking acetone -- Could try clears, advance diet as tolerated. Start PPI - IV for now, change to PO as able. Can also try GI cocktail. Observe for bleeding - Hgb normal x 2. Check stool studies if still having diarrhea. Could also consider additional imaging (HIDA) if pain persists. I asked pt/ to communicate w/ staff if vomiting or diarrhea recurs. Withdrawal precautions/pain control per primary. Long-term, no alcohol. Will check with our office re: any past records/scopes. Reviewed all w/ Dr. Roe. Update: Per d/w office staff, EGD in 2013 showed food in pouch and gastritis around anastomosis - otherwise normal, no ulcers. MEG COOK Jan 19, 2021 09:33
--- NOTE | 2021-01-19 10:41 | PDOC ---
[employer] PROGRESS NOTE Date of Service DOS: DATE: 01/19/21 TIME: 10:40 Chief Complaint Chief Complaint A/P: Intractable Abdominal pain -no clear intra-abdominal pathology possibly severe GERD versus PUD. Lower suspicion for cholecystitis given her ultrasound findings. If pain persists will consult general surgery have HIDA scan performed otherwise IV PPI remain n.p.o. until pain is under better control no further vomiting. Ruled out cardiac etiology with EKG and troponin HS Hematemesis - will trend Hb. No further vomiting in ED. concern for alcoholic gastritis as etiology. IV PPI. IV anti-emetics MARCELA - vasomotor nephropathy from dehydration from Alcohol binge. Cr 0.8 at [facility] clinic 2 months ago. Will hydrate and trend. Overweight - counseled on lifestyle modification Heavy ETOH use - will place on CIWA scale, monitor Hypokalemia - replace IV while NPO H/o stomach cancer - s/p resection with Dr. Pacheco over 5 years ago FEN - NPO PPX - SCDs, IV ppi FULL CODE Dispo - inpatient for above History of Present Illness History of Present Illness Ms Tan is a 60 yo F w/ PMHx ETOh abuse, stomach cancer s/p resection who presents to the ED with her sister c/o epigastric abdominal pain, nausea, vomiting and diarrhea. Reports there has been some bloody emesis. Sister reports pt has been drinking daily for the past week. Her sister notes multiple episodes of vomiting more than 10 times with a few episodes of some blood. Patient notes pain is sharp and 10 at worst worsened with alcohol and food does not radiate. Associated above nausea and vomiting. Per ED notes sister and noted patient has been drinking heavily for a week Smirnoff wine coolers and beers multiple per day and her sister notes she will drink incident either if there is none alcohol available No recent travel or sick contacts COVID 19 vaccinations completed june 2020. Has primary care through the [facility] Labs with WBC 7.9, Hb 12.6, platelets 232, NA 140, K3.3, BUN 6, CR 2.2, glucose 116, LFTs within normal limits, high-sensitivity troponin X, urinalysis positive ketones negative leuk esterase negative nitrites, ethanol level undetectable Chest radiograph CT abdomen pelvis with no acute abnormalities, right upper quadrant ultrasound with gallbladder no signs of cholecystitis. EKG sinus rhythm rate 87 bpm leftward axis otherwise normal intervals, QTC prolonged at [address] segment elevations no T WI. No previous EKG for comparison Admitted for further care Creatinine improved to 1.4, K3.2. Still n.p.o, will advance to clears per GI. some abdominal pain. Seen by GI. Per today she was actually drinking acetone nail indonesian remover for 3 days prior to admission. Still very drowsy intermittently. tells nursing staff he is surprised she still alive Vitals/I&O Vitals/I&O: Vital Signs Date Time Temp Pulse Resp B/P (MAP) Pulse Ox O2 Delivery O2 Flow Rate FiO2 01/19/21 07:00 98.0 103 18 131/74 (93) 94 Room Air 98.0 I & O 01/18/21 01/18/21 01/19/21 15:00 23:00 07:00 Intake Total 1000 ml Balance 1000 ml Physical Exam General: Alert, Oriented X3, Cooperative, moderate distress Abdomen: Normal bowel sounds, Soft, No hepatosplenomegaly, No masses, Other Extremities: No clubbing, No cyanosis, No edema, Normal pulses, No tend erness/swelling Skin: No rashes, No breakdown, No significant lesion Labs Labs: Laboratory Tests Test 01/19/21 03:20 Sodium Level 141 mmol/L (136-145) Potassium Level 3.2 mmol/L (3.5-5.1) Chloride Level 105 mmol/L (98-107) Carbon Dioxide Level 23 mmol/L (21-32) Anion Gap 13 (6-14) Blood Urea Nitrogen 7 mg/dL (7-20) Creatinine 1.4 mg/dL (0.6-1.0) Estimated GFR (Cockcroft-Gault) 38.5 BUN/Creatinine Ratio 5 (6-20) Glucose Level 70 mg/dL (70-99) Calcium Level 8.0 mg/dL (8.5-10.1) Total Bilirubin 0.5 mg/dL (0.2-1.0) Aspartate Amino Transf (AST/SGOT) 25 U/L (15-37) Alanine Aminotransferase (ALT/SGPT) 22 U/L (14-59) Alkaline Phosphatase 49 U/L (46-116) Total Protein 6.8 g/dL (6.4-8.2) Albumin 3.2 g/dL (3.4-5.0) Albumin/Globulin Ratio 0.9 (1.0-1.7) Assessment and Plan Assessmemt and Plan Problems Medical Problems: (1) Abdominal pain Status: Acute (2) Renal insufficiency Status: Acute Comment Review of Relevant I have reviewed the following items abraham (where applicable) has been applied. Medications: Current Medications Medications (Trade) Dose Ordered Sig/Markus Route PRN Reason Start Time Stop Time Status Last Admin Dose Admin Potassium Chloride/Water 100 ml @ 100 mls/hr 1X ONCE IV 01/18/21 11:15 01/18/21 12:14 DC 01/18/21 12:06 Justifications for Admission Other Justification CECELIA ARAUJO MD Jan 19, 2021 10:41
[2021-01-19 11:00] VITALS: BP 112/66
[2021-01-19] MEDS: POTASSIUM CHLORIDE 10MEQ 100 ML IV SCH ×2 (11:03→12:55)
[2021-01-19] MEDS: PANTOPRAZOLE IV PUSH 40 MG VIAL. IVP SCH (11:08)
[2021-01-19 15:00] VITALS: BP 127/87
[2021-01-19 19:00] VITALS: BP 147/81
[2021-01-19 23:00] VITALS: BP 108/73
[2021-01-19] MEDS: LIDO:MAALOX 1:1 20 ML SINGLE DOSE. PO PRN (23:16)
[2021-01-19] MEDS: DICYCLOMINE HCL 10 MG CAPSULE PO PRN (23:16)
[2021-01-20] MEDS: fentaNYL PF VIAL 100 MCG/2 ML VIAL IVP PRN ×3 (01:19→14:48)
[2021-01-20 03:00] VITALS: BP 126/76
[2021-01-20] MEDS: LIDO:MAALOX 1:1 20 ML SINGLE DOSE. PO PRN (05:21)
[2021-01-20] MEDS: DICYCLOMINE HCL 10 MG CAPSULE PO PRN (05:21)
--- NOTE | 2021-01-20 06:48 | PDOC ---
[facility] I PROGRESS NOTE Reason for Follow-up Abd pain Subjective Nauseated Physical Exam Lungs clear CV S1 S2 ABD decreased BS, +RUQ tenderness to palpation Review of Relevant I have reviewed the following items abraham (where applicable) has been applied. Labs Laboratory Tests Test 01/18/21 10:30 01/19/21 03:20 White Blood Count 6.6 x10^3/uL (4.0-11.0) Red Blood Count 4.16 x10^6/uL (3.50-5.40) Hemoglobin 12.8 g/dL (12.0-15.5) Hematocrit 37.6 % (36.0-47.0) Mean Corpuscular Volume 91 fL (79-100) Mean Corpuscular Hemoglobin 31 pg (25-35) Mean Corpuscular Hemoglobin Concent 34 g/dL (31-37) Red Cell Distribution Width 17.3 % (11.5-14.5) Platelet Count 200 x10^3/uL (140-400) Sodium Level 140 mmol/L (136-145) 141 mmol/L (136-145) Potassium Level 3.2 mmol/L (3.5-5.1) 3.2 mmol/L (3.5-5.1) Chloride Level 105 mmol/L (98-107) 105 mmol/L (98-107) Carbon Dioxide Level 24 mmol/L (21-32) 23 mmol/L (21-32) Anion Gap 11 (6-14) 13 (6-14) Blood Urea Nitrogen 8 mg/dL (7-20) 7 mg/dL (7-20) Creatinine 1.8 mg/dL (0.6-1.0) 1.4 mg/dL (0.6-1.0) Estimated GFR (Cockcroft-Gault) 28.8 38.5 Glucose Level 97 mg/dL (70-99) 70 mg/dL (70-99) Calcium Level 8.2 mg/dL (8.5-10.1) 8.0 mg/dL (8.5-10.1) Troponin I High Sensitivity 8 ng/L (4-50) BUN/Creatinine Ratio 5 (6-20) Total Bilirubin 0.5 mg/dL (0.2-1.0) Aspartate Amino Transf (AST/SGOT) 25 U/L (15-37) Alanine Aminotransferase (ALT/SGPT) 22 U/L (14-59) Alkaline Phosphatase 49 U/L (46-116) Total Protein 6.8 g/dL (6.4-8.2) Albumin 3.2 g/dL (3.4-5.0) Albumin/Globulin Ratio 0.9 (1.0-1.7) Medications Current Medications Ketorolac Tromethamine (Toradol 15mg Vial) 15 mg 1X ONCE IM ; Start 01/17/21 at 21:00; Stop 01/17/21 at 21:01; Status Cancel Sodium Chloride 1,000 ml @ 1,000 mls/hr 1X ONCE IV Last administered on 01/17/21at 21:37; Start 01/17/21 at 22:00; Stop 01/17/21 at 22:59; Status DC Famotidine (Pepcid Vial) 20 mg 1X ONCE IVP Last administered on 01/17/21at 23:41; Start 01/17/21 at 23:45; Stop 01/17/21 at 23:46; Status DC Metoclopramide HCl (Reglan Vial) 10 mg 1X ONCE IVP Last administered on 01/17/21at 23:41; Start 01/17/21 at 23:45; Stop 01/17/21 at 23:46; Status DC Sodium Chloride 1,000 ml @ 125 mls/hr Q8H IV Last administered on 01/18/21at 07:00; Start 01/18/21 at 06:00; Stop 01/18/21 at 21:59; Status DC Acetaminophen (Tylenol) 650 mg PRN Q6HRS PRN PO MILD PAIN / TEMP > 100.3'F; Start 01/18/21 at 06:00 Olanzapine (ZyPREXA ZYDIS) 5 mg PRN BID PRN PO ANXIETY / AGITATION; Start 01/18/21 at 06:00 Ondansetron HCl (Zofran) 4 mg PRN Q4HRS PRN IVP NAUSEA/VOMITING 1ST CHOICE Last administered on 01/18/21at 09:31; Start 01/18/21 at 06:00 Ondansetron HCl (Zofran Odt) 4 mg PRN Q4HRS PRN PO NAUSEA; Start 01/18/21 at 06:00 Multivitamins (Thera M Plus) 1 tab DAILY PO ; Start 01/18/21 at 09:00 Folic Acid (Folic Acid) 1 mg DAILY PO ; Start 01/18/21 at 09:00 Thiamine Mononitrate (Vitamin B-1) 100 mg DAILY PO ; Start 01/18/21 at 09:00 Lorazepam (Ativan) 1 mg PRN Q1HR PRN PO For CIWA 8-14; Start 01/18/21 at 06:00 Lorazepam (Ativan) 2 mg PRN Q1HR PRN PO For CIWA 15 or greater; Start 01/18/21 at 06:00 Lorazepam (Ativan Inj) 1 mg PRN Q1HR PRN IV For CIWA 8-14 Last administered on 01/18/21at 23:51; Start 01/18/21 at 06:00 Lorazepam (Ativan Inj) 2 mg PRN Q1HR PRN IV For CIWA 15 or greater Last administered on 01/19/21at 12:48; Start 01/18/21 at 06:00 Clonidine HCl (Catapres) 0.1 mg PRN Q1HR PRN PO SBP > 180 or DBP > 100, MRX3; Start 01/18/21 at 06:00 Pantoprazole Sodium (PROTONIX VIAL for IV PUSH) 40 mg 1X ONCE IVP Last administered on 01/18/21at 09:42; Start 01/18/21 at 09:30; Stop 01/18/21 at 09:31; Status DC Fentanyl Citrate (Fentanyl 2ml Vial) 25 mcg PRN Q3HRS PRN IVP SEVERE PAIN 7-10 Last administered on 01/20/21at 05:21; Start 01/18/21 at 09:30 Multivitamins 10 ml/Thiamine HCl 100 mg/Folic Acid 1 mg/Sodium Chloride 1,011.2 ml @ 1,000.088 mls/hr 1X ONCE IV Last administered on 01/18/21at 10:18; Start 01/18/21 at 10:00; Stop 01/18/21 at 11:00; Status DC Potassium Chloride/Water 100 ml @ 100 mls/hr 1X ONCE IV Last administered on 01/18/21at 12:06; Start 01/18/21 at 11:15; Stop 01/18/21 at 12:14; Status DC Potassium Chloride/Water 100 ml @ 100 mls/hr Q1H IV Last administered on 01/19/21at 12:55; Start 01/19/21 at 11:00; Stop 01/19/21 at 12:59; Status DC Pantoprazole Sodium (PROTONIX VIAL for IV PUSH) 40 mg DAILYAC IVP Last administered on 01/19/21at 11:08; Start 01/19/21 at 11:00 Multi-Ingredient Mouthwash/Gargle (Gi Cocktail) 20 ml PRN QID PRN PO upper abdominal pain Last administered on 01/20/21at 05:21; Start 01/19/21 at 11:00 Dicyclomine HCl (Bentyl) 10 mg PRN QID PRN PO ABDOMINAL CRAMPS Last administered on 01/20/21at 05:21; Start 01/19/21 at 11:00 Vitals/I & O Vital Sign - Last 24 Hours 01/19/21 01/19/21 01/19/21 01/19/21 07:00 08:00 11:00 15:00 Temp 98.0 97.6 97.6 98.0 97.6 97.6 Pulse 103 103 106 Resp 18 16 16 B/P (MAP) 131/74 (93) 112/66 (81) 127/87 (100) Pulse Ox 94 93 95 O2 Delivery Room Air Room Air Room Air Room Air 01/19/21 01/19/21 01/19/21 01/19/21 19:00 19:50 20:55 23:00 Temp 98.1 97.3 98.1 97.3 Pulse 103 59 Resp 18 16 B/P (MAP) 147/81 (103) 108/73 (85) Pulse Ox 94 94 O2 Delivery Room Air Room Air Room Air Room Air 01/20/21 01/20/21 01/20/21 01:19 03:00 05:21 Temp 98.2 98.2 Pulse 107 Resp 18 B/P (MAP) 126/76 (93) Pulse Ox 92 O2 Delivery Room Air Room Air Room Air Intake and Output 01/19/21 01/19/21 01/20/21 15:00 23:00 07:00 Intake Total 100 ml 110 ml Balance 100 ml 110 ml Problem List Problems Medical Problems: (1) Abdominal pain Status: Acute (2) Renal insufficiency Status: Acute Assessment ABd pain- chroinc cholecystits leads differential. Plan HIDA EF to further assess AA superintendent terminal Justicifation of Admission Dx: Justifications for Admission: Justification of Admission Dx: Yes SHLOMO KABA MD Jan 20, 2021 06:48
[2021-01-20 07:00] VITALS: BP 128/81
[2021-01-20 07:15] LABS: BASO % 1 % (0-3); EOS # 0.1 x10^3/uL (0.0-0.7); EOS % 2 % (0-3); HEMATOCRIT 36.9 % (36.0-47.0); HEMOGLOBIN 12.3 g/dL (12.0-15.5); LYMPH # 1.8 x10^3/uL (1.0-4.8); LYMPH % 32 % (24-48); MEAN CORPUSCULAR HEMOGLOBIN 30 pg (25-35); MEAN CORPUSCULAR HGB CONC 33 g/dL (31-37); MEAN CORPUSCULAR VOLUME 91 fL (79-100); MONO # 0.5 x10^3/uL (0.0-1.1); MONO % 9 % (0-9); NEUT # 3.2 x10^3/uL (1.8-7.7); NEUT % 57 % (31-73); PLATELET COUNT 190 x10^3/uL (140-400); RED BLOOD COUNT 4.08 x10^6/uL (3.50-5.40); RED CELL DISTRIBUTION WIDTH 16.6 % (11.5-14.5); WHITE BLOOD COUNT 5.6 x10^3/uL (4.0-11.0)
[2021-01-20] MEDS: THIAMINE 100 MG TABLET. PO SCH (07:16)
[2021-01-20] MEDS: MULTIVITAMIN with MINERAL TABLET. PO SCH (07:16)
[2021-01-20] MEDS: FOLIC ACID 1 MG TABLET. PO SCH (07:16)
[2021-01-20 07:46] LABS: ALBUMIN 3.4 g/dL (3.4-5.0); ALBUMIN/GLOBULIN RATIO 0.9 (1.0-1.7); CALCIUM 8.5 mg/dL (8.5-10.1); CREATININE 1.1 mg/dL (0.6-1.0); GFR 50.8; POTASSIUM 3.1 mmol/L (3.5-5.1); TOTAL BILIRUBIN 0.5 mg/dL (0.2-1.0); TOTAL PROTEIN 7.1 g/dL (6.4-8.2)
--- NOTE | 2021-01-20 08:37 | PDOC ---
[employer] PROGRESS NOTE Date of Service DOS: DATE: 01/20/21 TIME: 08:36 Chief Complaint Chief Complaint A/P: Intractable Abdominal pain -no clear intra-abdominal pathology possibly severe GERD versus PUD. Lower suspicion for cholecystitis given her ultrasound findings. If pain persists will consult general surgery have HIDA scan performed otherwise IV PPI remain n.p.o. until pain is under better control no further vomiting. Ruled out cardiac etiology with EKG and troponin HS Hematemesis - will trend Hb. No further vomiting in ED. concern for alcoholic gastritis as etiology. IV PPI. IV anti-emetics MARCELA - vasomotor nephropathy from dehydration from Alcohol binge. Cr 0.8 at [facility] clinic 2 months ago. Will hydrate and trend. Overweight - counseled on lifestyle modification Heavy ETOH use - will place on CIWA scale, monitor Hypokalemia - replace IV while NPO H/o stomach cancer - s/p resection with Dr. Pacheco over 5 years ago FEN - NPO PPX - SCDs, IV ppi FULL CODE Dispo - inpatient for above History of Present Illness History of Present Illness Ms Tan is a 60 yo F w/ PMHx ETOh abuse, stomach cancer s/p resection who presents to the ED with her sister c/o epigastric abdominal pain, nausea, vomiting and diarrhea. Reports there has been some bloody emesis. Sister reports pt has been drinking daily for the past week. Her sister notes multiple episodes of vomiting more than 10 times with a few episodes of some blood. Patient notes pain is sharp and 10 at worst worsened with alcohol and food does not radiate. Associated above nausea and vomiting. Per ED notes sister and noted patient has been drinking heavily for a week Smirnoff wine coolers and beers multiple per day and her sister notes she will drink incident either if there is none alcohol available No recent travel or sick contacts COVID 19 vaccinations completed june 2020. Has primary care through the [facility] Labs with WBC 7.9, Hb 12.6, platelets 232, NA 140, K3.3, BUN 6, CR 2.2, glucose 116, LFTs within normal limits, high-sensitivity troponin X, urinalysis positive ketones negative leuk esterase negative nitrites, ethanol level undetectable Chest radiograph CT abdomen pelvis with no acute abnormalities, right upper quadrant ultrasound with gallbladder no signs of cholecystitis. EKG sinus rhythm rate 87 bpm leftward axis otherwise normal intervals, QTC prolonged at [address] segment elevations no T WI. No previous EKG for comparison Admitted for further care 01/19: Creatinine improved to 1.4, K3.2. Still n.p.o, will advance to clears per GI. some abdominal pain. Seen by GI. Per today she was actually drinking acetone nail faroese remover for 3 days prior to admission. Still very drowsy intermittently. tells nursing staff he is surprised she still alive 01/20: K 3.1, CR 1.1. Afebrile overnight. HIDA scan planned as still with RUQ pain. Discussed with bedside he is very concerned that she continues to drink acetone at home. He would like alcohol abuse resources, will start gabapentin after HIDA scan Vitals/I&O Vitals/I&O: Vital Signs Date Time Temp Pulse Resp B/P (MAP) Pulse Ox O2 Delivery O2 Flow Rate FiO2 01/20/21 08:00 Room Air 01/20/21 07:00 98.2 86 18 128/81 (97) 93 98.2 I & O 01/19/21 01/19/21 01/20/21 15:00 23:00 07:00 Intake Total 100 ml 110 ml Balance 100 ml 110 ml Physical Exam General: Alert, Oriented X3, Cooperative, moderate distress Abdomen: Normal bowel sounds, Soft, No hepatosplenomegaly, No masses, Other Extremities: No clubbing, No cyanosis, No edema, Normal pulses, No tenderness/swelling Skin: No rashes, No breakdown, No significant lesion Labs Labs: Laboratory Tests Test 01/20/21 06:55 White Blood Count 5.6 x10^3/uL (4.0-11.0) Red Blood Count 4.08 x10^6/uL (3.50-5.40) Hemoglobin 12.3 g/dL (12.0-15.5) Hematocrit 36.9 % (36.0-47.0) Mean Corpuscular Volume 91 fL (79-100) Mean Corpuscular Hemoglobin 30 pg (25-35) Mean Corpuscular Hemoglobin Concent 33 g/dL (31-37) Red Cell Distribution Width 16.6 % (11.5-14.5) Platelet Count 190 x10^3/uL (140-400) Neutrophils (%) (Auto) 57 % (31-73) Lymphocytes (%) (Auto) 32 % (24-48) Monocytes (%) (Auto) 9 % (0-9) Eosinophils (%) (Auto) 2 % (0-3) Basophils (%) (Auto) 1 % (0-3) Neutrophils # (Auto) 3.2 x10^3/uL (1.8-7.7) Lymphocytes # (Auto) 1.8 x10^3/uL (1.0-4.8) Monocytes # (Auto) 0.5 x10^3/uL (0.0-1.1) Eosinophils # (Auto) 0.1 x10^3/uL (0.0-0.7) Basophils # (Auto) 0.0 x10^3/uL (0.0-0.2) Sodium Level 137 mmol/L (136-145) Potassium Level 3.1 mmol/L (3.5-5.1) Chloride Level 102 mmol/L (98-107) Carbon Dioxide Level 23 mmol/L (21-32) Anion Gap 12 (6-14) Blood Urea Nitrogen 8 mg/dL (7-20) Creatinine 1.1 mg/dL (0.6-1.0) Estimated GFR (Cockcroft-Gault) 50.8 BUN/Creatinine Ratio 7 (6-20) Glucose Level 79 mg/dL (70-99) Calcium Level 8.5 mg/dL (8.5-10.1) Total Bilirubin 0.5 mg/dL (0.2-1.0) Aspartate Amino Transf (AST/SGOT) 20 U/L (15-37) Alanine Aminotransferase (ALT/SGPT) 22 U/L (14-59) Alkaline Phosphatase 52 U/L (46-116) Ammonia 28 mcmol/L (11-34) Total Protein 7.1 g/dL (6.4-8.2) Albumin 3.4 g/dL (3.4-5.0) Albumin/Globulin Ratio 0.9 (1.0-1.7) Assessment and Plan Assessmemt and Plan Problems Medical Problems: (1) Abdominal pain Status: Acute (2) Renal insufficiency Status: Acute Comment Review of Relevant I have reviewed the following items abraham (where applicable) has been applied. Medications: Current Medications Medications (Trade) Dose Ordered Sig/Markus Route PRN Reason Start Time Stop Time Status Last Admin Dose Admin Potassium Chloride/Water 100 ml @ 100 mls/hr Q1H IV 01/19/21 11:00 01/19/21 12:59 DC 01/19/21 12:55 Pantoprazole Sodium (PROTONIX VIAL for IV PUSH) 40 mg DAILYAC IVP 01/19/21 11:00 01/19/21 11:08 Multi-Ingredient Mouthwash/Gargle (Gi Cocktail) 20 ml PRN QID PRN PO upper abdominal pain 01/19/21 11:00 01/20/21 05:21 Dicyclomine HCl (Bentyl) 10 mg PRN QID PRN PO ABDOMINAL CRAMPS 01/19/21 11:00 01/20/21 05:21 Justifications for Admission Other Justification CECELIA ARAUJO MD Jan 20, 2021 08:37
[2021-01-20] MEDS ORDERED: POTASSIUM CHLORIDE 20 MEQ TABLET.ER. PO ONE (09:00)
[2021-01-20] MEDS: PANTOPRAZOLE IV PUSH 40 MG VIAL. IVP SCH (09:14)
[2021-01-20] MEDS: POTASSIUM CHLORIDE 10MEQ 100 ML IV SCH ×2 (09:18→13:12)
[2021-01-20] MEDS: GABAPENTIN 300 MG CAPSULE. PO SCH ×3 (10:00→20:05)
--- NOTE | 2021-01-20 10:22 | NUR ---
SW following. Discussed with RN, pt from home with , room air, clear liquid diet. HIDA scan today. GI following. Pt cleared by PAT. Manny Santo following for self pay status. SW will continue to follow.
[2021-01-20] MEDS ORDERED: SINCALIDE 1.37 MCG in IV NORMAL SALINE 50ML 30 ML IV ONE (11:45)
--- NOTE | 2021-01-20 12:42 | RAD ---
HEPATOBILIARY SCAN WITH EJECTION FRACTION 01/20/2021 12:39 PM History: Reason: ruq abd pain with ejection fraction please / Spl. Instructions: / History: Procedure: Serial static images are obtained of the liver and biliary system in the frontal projectio n following IV administration of 5.5 mCi of Technetium 99m Choletec. After filling of the gallbladd er, 1.4 mcg of sincalide were infused over 30 minutes and dynamic imaging continued over this period. The gallbladder ejection fraction was calculated. Findings: There is prompt hepatic clearance of tracer from the blood pool. There is homogeneous distr ibution throughout the liver. The gallbladder ejection fraction measures 69% (normal gallbladder EF is 35% or greater). IMPRESSION: 1. The cystic duct and common bile duct are patent. Negative for acute cholecystitis. 2. The gallbladder ejection fraction is normal Electronically signed by: Mario Chambers MD (01/20/2021 12:40 PM) [id number]
[2021-01-20 15:00] VITALS: BP 130/77
[2021-01-20 19:46] VITALS: BP 145/76
[2021-01-20 23:13] VITALS: BP 133/78
[2021-01-21] MEDS: ACETAMINOPHEN 325 MG TABLET. PO PRN
[2021-01-21] MEDS: ONDANSETRON PF 4 MG/2 ML VIAL. IVP PRN
[2021-01-21] MEDS: LIDO:MAALOX 1:1 20 ML SINGLE DOSE. PO PRN ×4 (00:01→22:13)
[2021-01-21 03:51] VITALS: BP 121/77
[2021-01-21] MEDS: fentaNYL PF VIAL 100 MCG/2 ML VIAL IVP PRN (04:12)
[2021-01-21 07:00] VITALS: BP 118/73
[2021-01-21] MEDS: GABAPENTIN 300 MG CAPSULE. PO SCH ×3 (08:19→20:20)
[2021-01-21] MEDS: PANTOPRAZOLE IV PUSH 40 MG VIAL. IVP SCH (08:19)
[2021-01-21] MEDS: MULTIVITAMIN with MINERAL TABLET. PO SCH (08:19)
[2021-01-21] MEDS: THIAMINE 100 MG TABLET. PO SCH (08:19)
[2021-01-21] MEDS: FOLIC ACID 1 MG TABLET. PO SCH (08:19)
[2021-01-21 10:49] LABS: CALCIUM 8.8 mg/dL (8.5-10.1); CREATININE 0.8 mg/dL (0.6-1.0); GFR 73.4; MAGNESIUM 2.5 mg/dL (1.8-2.4); POTASSIUM 3.7 mmol/L (3.5-5.1)
[2021-01-21 11:00] VITALS: BP 116/68
--- NOTE | 2021-01-21 11:58 | PDOC ---
[employer] PROGRESS NOTE Date of Service DOS: DATE: 01/21/21 TIME: 11:57 Chief Complaint Chief Complaint A/P: Intractable Abdominal pain -no clear intra-abdominal pathology possibly severe GERD versus PUD. Lower suspicion for cholecystitis given her ultrasound findings. If pain persists will consult general surgery have HIDA scan performed otherwise IV PPI remain n.p.o. until pain is under better control no further vomiting. Ruled out cardiac etiology with EKG and troponin HS Hematemesis - will trend Hb. No further vomiting in ED. concern for alcoholic gastritis as etiology. IV PPI. IV anti-emetics MARCELA - vasomotor nephropathy from dehydration from Alcohol binge. Cr 0.[address] [facility] clinic 2 months ago. Will hydrate and trend. Overweight - counseled on lifestyle modification Heavy ETOH use - will place on CIWA scale, monitor Hypokalemia - replace IV while NPO H/o stomach cancer - s/p resection with Dr. Pacheco over 5 years ago FEN - NPO PPX - SCDs, IV ppi FULL CODE Dispo - inpatient for above History of Present Illness History of Present Illness Ms Tan is a 60 yo F w/ PMHx ETOh abuse, stomach cancer s/p resection who presents to the ED with her sister c/o epigastric abdominal pain, nausea, vomiting and diarrhea. Reports there has been some bloody emesis. Sister reports pt has been drinking daily for the past week. Her sister notes multiple episodes of vomiting more than 10 times with a few episodes of some blood. Patient notes pain is sharp and 10 at worst worsened with alcohol and food does not radiate. Associated above nausea and vomiting. Per ED notes sister and noted patient has been drinking heavily for a week Smirnoff wine coolers and beers multiple per day and her sister notes she will drink incident either if there is none alcohol available No recent travel or sick contacts COVID 19 vaccinations completed june 2020. Has primary care through the [facility] Labs with WBC 7.9, Hb 12.6, platelets 232, NA 140, K3.3, BUN 6, CR 2.2, glucose 116, LFTs within normal limits, high-sensitivity troponin X, urinalysis positive ketones negative leuk esterase negative nitrites, ethanol level undetectable Chest radiograph CT abdomen pelvis with no acute abnormalities, right upper quadrant ultrasound with gallbladder no signs of cholecystitis. EKG sinus rhythm rate 87 bpm leftward axis otherwise normal intervals, QTC prolonged at [address] segment elevations no T WI. No previous EKG for comparison Admitted for further care 01/19: Creatinine improved to 1.4, K3.2. Still n.p.o, will advance to clears per GI. some abdominal pain. Seen by GI. Per today she was actually drinking acetone nail sao tomean remover for 3 days prior to admission. Still very drowsy intermittently. tells nursing staff he is surprised she still alive 01/20: K 3.1, CR 1.1. Afebrile overnight. HIDA scan planned as still with RUQ pain. Discussed with bedside he is very concerned that she continues to drink acetone at home. He would like alcohol abuse resources, will start gabapentin after HIDA scan 01/21/2021 No acute events overnight. Patient seen and examined bedside. HIDA scan negative for acute cholecystitis. Patient upon my physical exam did have some mild right upper quadrant discomfort upon palpation. Will attempt to advance diet as tolerated. Apparently, per nursing the patient has not had a bowel movement since admission. Will wait for this before discharge. Patient's chart, labs, images were reviewed and discussed with RN Vitals/I&O Vitals/I&O: Vital Signs Date Time Temp Pulse Resp B/P (MAP) Pulse Ox O2 Delivery O2 Flow Rate FiO2 01/21/21 11:00 98.3 88 18 116/68 (84) 94 Room Air 98.3 I & O 01/20/21 01/20/21 01/21/21 15:00 23:00 07:00 Intake Total 120 ml Balance 120 ml Physical Exam General: Alert, Oriented X3, Cooperative, moderate distress Abdomen: Normal bowel sounds, Soft, No hepatosplenomegaly, No masses, Other Extremities: No clubbing, No cyanosis, No edema, Normal pulses, No tenderness/swelling Skin: No rashes, No breakdown, No significant lesion Labs Labs: Laboratory Tests Test 01/21/21 10:05 Sodium Level 140 mmol/L (136-145) Potassium Level 3.7 mmol/L (3.5-5.1) Chloride Level 103 mmol/L (98-107) Carbon Dioxide Level 23 mmol/L (21-32) Anion Gap 14 (6-14) Blood Urea Nitrogen 10 mg/dL (7-20) Creatinine 0.8 mg/dL (0.6-1.0) Estimated GFR (Cockcroft-Gault) 73.4 Glucose Level 94 mg/dL (70-99) Calcium Level 8.8 mg/dL (8.5-10.1) Magnesium Level 2.5 mg/dL (1.8-2.4) Assessment and Plan Assessmemt and Plan Problems Medical Problems: (1) Abdominal pain Status: Acute (2) Renal insufficiency Status: Acute Comment Review of Relevant I have reviewed the following items abraham (where applicable) has been applied. Justifications for Admission Other Justification GLADYS SILVESTRE MD Jan 21, 2021 11:58
[2021-01-21 15:00] VITALS: BP 122/68
[2021-01-21 19:00] VITALS: BP 91/57
[2021-01-21 23:12] VITALS: BP 112/67
[2021-01-22] MEDS: ACETAMINOPHEN 325 MG TABLET. PO PRN (00:28)
[2021-01-22 03:26] VITALS: BP 111/64
[2021-01-22 07:00] VITALS: BP 104/62
[2021-01-22] MEDS: THIAMINE 100 MG TABLET. PO SCH (08:51)
[2021-01-22] MEDS: FOLIC ACID 1 MG TABLET. PO SCH (08:52)
[2021-01-22] MEDS: PANTOPRAZOLE IV PUSH 40 MG VIAL. IVP SCH (08:52)
[2021-01-22] MEDS: MULTIVITAMIN with MINERAL TABLET. PO SCH (08:52)
[2021-01-22] MEDS: DICYCLOMINE HCL 10 MG CAPSULE PO PRN (08:52)
[2021-01-22] MEDS: ONDANSETRON PF 4 MG/2 ML VIAL. IVP PRN (08:53)
[2021-01-22] MEDS: GABAPENTIN 300 MG CAPSULE. PO SCH ×2 (09:00→14:39)
[2021-01-22 11:00] VITALS: BP 102/52
[2021-01-22] MEDS: fentaNYL PF VIAL 100 MCG/2 ML VIAL IVP PRN (11:34)
[2021-01-22] MEDS ORDERED: GABA300C18 PO (12:10)
[2021-01-22] MEDS ORDERED: OXYC1TAB15 PO (12:10)
[2021-01-22] MEDS ORDERED: THIA100T22 PO (12:10)
[2021-01-22] MEDS ORDERED: Folic Acid PO (12:10)
--- NOTE | 2021-01-22 12:13 | DISCH ---
DISCHARGE INSTRUCTIONS Condition on Discharge Condition on Discharge: Guarded Activity After Discharge Activity Instructions for Disc: Activity as tolerated Driving Instructions after Dis: No driving for 2 weeks Diet after Discharge Diet after Discharge: Cardiac Follow-Up Follow up with: PCP within 2 weeks of discharge Follow Up With: Gastroenterology as scheduled or as needed GLADYS SILVESTRE MD Jan 22, 2021 12:13
[2021-01-22 15:00] VITALS: BP 114/64
--- NOTE | 2021-01-22 15:11 | NUR ---
Patient verbalized understanding of discharge instructions. Patient verbalized instructions to not drink alcohol and/or acetone. Patient verbalized understanding of follow up with specialist.
--- NOTE | 2021-01-24 18:08 | PDOC3 ---
[facility]-Discharge Summary Date of Admission: Date of Admission: Jan 18, 2021 Date of Discharge: Date of Discharge: Jan 22, 2021 Discharge Diagnosis: Discharge Diagnosis: Intractable Abdominal pain -no clear intra-abdominal pathology possibly severe GERD versus PUD. Lower suspicion for cholecystitis given her ultrasound findings. If pain persists will consult general surgery have HIDA scan pe rformed otherwise IV PPI remain n.p.o. until pain is under better control no further vomiting. Ruled out cardiac etiology with EKG and troponin HS Hematemesis - will trend Hb. No further vomiting in ED. concern for alcoholic gastritis as etiology. IV PPI. IV anti-emetics MARCELA - vasomotor nephropathy from dehydration from Alcohol binge. Cr 0.8 at [facility] 2 months ago. Will hydrate and trend. Overweight - counseled on lifestyle modification Heavy ETOH use - will place on CIWA scale, monitor Hypokalemia - replace IV while NPO H/o stomach cancer - s/p resection with Dr. Pacheco over 5 years ago Hospital Course: Hospital Course: 60 yo F w/ PMHx ETOh abuse, stomach cancer s/p resection who presents to the ED with her sister c/o epigastric abdominal pain, nausea, vomiting and diarrhea. Reports there has been some bloody emesis. Sister reports pt has been drinking daily for the past week. Her sister notes multiple episodes of vomiting more than 10 times with a few episodes of some blood. Patient notes pain is sharp and 10 at worst worsened with alcohol and food does not radiate. Associated above nausea and vomiting. Per ED notes sister and noted patient has been drinking heavily for a week Smirnoff wine coolers and beers multiple per day and her sister notes she will drink incident either if there is none alcohol available No recent travel or sick contacts COVID 19 vaccinations completed june 2020. Has primary care through the [facility] Labs with WBC 7.9, Hb 12.6, platelets 232, NA 140, K3.3, BUN 6, CR 2.2, glucose 116, LFTs within normal limits, high-sensitivity troponin X, urinalysis positive ketones negative leuk esterase negative nitrites, ethanol level undetectable Chest radiograph CT abdomen pelvis with no acute abnormalities, right upper quadrant ultrasound with gallbladder no signs of cholecystitis. EKG sinus rhythm rate 87 bpm leftward axis otherwise normal intervals, QTC prolonged at [address] segment elevations no T WI. No previous EKG for comparison Admitted for further care 01/19: Creatinine improved to 1.4, K3.2. Still n.p.o, will advance to clears per GI. some abdominal pain. Seen by GI. Per today she was actually drinking acetone nail occitan remover for 3 days prior to admission. Still very drowsy intermittently. tells nursing staff he is surprised she still alive 01/20: K 3.1, CR 1.1. Afebrile overnight. HIDA scan planned as still with RUQ pain. Discussed with bedside he is very concerned that she continues to drink acetone at home. He would like alcohol abuse resources, will start gabapentin after HIDA scan 01/21/2021 No acute events overnight. Patient seen and examined bedside. HIDA scan negative for acute cholecystitis. Patient upon my physical exam did have some mild right upper quadrant discomfort upon palpation. Will attempt to advance diet as tolerated. Apparently, per nursing the patient has not had a bowel movement since admission. Will wait for this before discharge. Patient's chart , labs, images were reviewed and discussed with RN By day of discharge, pt was clinically stable and ready for discharge. HEr ABD pain improved and she was tolerating diet. She did have BMx 1 before discharge. Rest of hospital course was uneventful Disposition: Disposition/Orders: D/C to Home Activity: Activity: Resume previous activity Diet: Diet: Cardiac Medications: Home Meds Active Scripts Oxycodone/Apap 5-325 (PERCOCET 5-325 MG TABLET ) 1 Each Tablet, 1 TAB PO PRN Q6HRS PRN for PAIN for 1 Day, #4 TAB 0 Refills Prov:GLADYS SILVESTRE MD 01/22/21 [Folic Acid] 1 MG TABLET No Conflict Check, 1 MG PO DAILY for supplement for 30 Days, #30 2 Refills Prov:GLADYS SILVESTRE MD 01/22/21 Thiamine Mononitrate (VITAMIN B-1) 100 Mg Tablet, 100 MG PO DAILY for supplement for 30 Days, #30 TAB 2 Refills Prov:GLADYS SILVESTRE MD 01/22/21 Gabapentin (GABAPENTIN) 300 Mg Capsule, 300 MG PO TID for neuropathic pain for 30 Days, #90 CAP 2 Refills Prov:GLADYS SILVESTRE MD 01/22/21 Scheduled Gabapentin (Gabapentin), 300 MG PO TID Thiamine Mononitrate (Vitamin B-1), 100 MG PO DAILY [Folic Acid], 1 MG PO DAILY Scheduled PRN Oxycodone/Apap 5-325 (Percocet 5-325 Mg Tablet ), 1 TAB PO PRN Q6HRS PRN for PAIN Total Time: Total Time: Total time spent was 36 minutes in preparing scripts, discharge planning with SW and RN, and preparing this discharge summary. Justicifation of Admission Dx: Justifications for Admission: Justification of Admission Dx: Yes GLADYS SILVESTRE MD Jan 24, 2021 18:08
== END 2021-01-22 16:10 | disposition home or self-care (01) | DRG 377 ==
LOC: ER 18:52 → 4 NORTH 01-18 00:05 → MERGE 01-18 00:05
PROVIDERS: ADMIT Internal Medicine; ATTEND Internal Medicine
DX: K92.0 Hematemesis (principal); N17.0 Acute kidney failure with tubular necrosis; K21.9 Gastro-esophageal reflux disease without esophagitis; E66.3 Overweight; E86.0 Dehydration; E87.6 Hypokalemia; F10.10 Alcohol abuse, uncomplicated; G62.9 Polyneuropathy, unspecified; Z82.49 Family history of ischemic heart disease and other diseases of the circulatory system; Z83.3 Family history of diabetes mellitus; Z85.028 Personal history of other malignant neoplasm of stomach; Z87.891 Personal history of nicotine dependence; Z96.649 Presence of unspecified artificial hip joint; K29.20 Alcoholic gastritis without bleeding
CPT/HCPCS: 36415; 71045; 74176; 76705; 78227; 80048; 80053; 81001; 82140; 83690; 83735; 83930; 84484; 85025; 85027; 93005; 96361; 96374; 96375; A9537; C9113; G0480; J2060; J2405; J2765; J3010; J3411; J3480; J3490; J7030; 99285-25; G0378